=== PATIENT | female | born 1995 | race African-American/Black ===

== ENCOUNTER 2020-01-20 11:12 | Emergency (ER) | payer OTHER, SELFPAY ==
--- NOTE | ~2020-01-20 | CT_ITS ---
EXAMINATION: CT abdomen pelvis w con DATE: 01/20/2020 12:54 INDICATION: Right lower quadrant abdominal pain. TECHNIQUE: Computed tomography (CT) of the abdomen and pelvis was performed with 100 mL Omnipaque 350 intravenous contrast. Automated exposure control and iterative reconstruction technique were employe d. The dose-length product was 218.60 mGy-cm. COMPARISON: None. FINDINGS: The visualized portions of the lung bases demonstrate a nodule with central calcification i n left lower lobe, consistent with old granulomatous disease. No pleural effusion. The heart size is normal. No pericardial effusion. The liver, gallbladder, spleen, pancreas, and adrenal glands are nor mal. There are striated contrast nephrograms bilaterally. There are no dilated loops of bowel. The ap pendix is normal. There are no pathologically enlarged lymph nodes. There is trace pelvic ascites, li vitaly physiologic. Thoracolumbar levocurvature is noted. IMPRESSION: 1. Bilateral striated contrast nephrograms, consistent with pyelonephritis. Reviewed, dictated and finalized at location A.
[2020-01-20 11:22] VITALS: BP 132/81; PULSE 88; RESP 16; TEMP 36.6; O2SAT 100
[2020-01-20 11:56] LABS: Basophils Percent Auto 0.5 % (0.2-1.2); Eosinophils Percent Auto 0.1 % (0-4.4); Hematocrit 45.4 % (37.0-47.0); Hemoglobin 14.5 g/dL (12.0-15.0); Immature Granulocyte Absolute 0.03 K/mm3 (0.00-0.031); Immature Granulocyte Percent A 0.3 % (0-0.5); Lymphocytes Absolute Auto 1.95 K/mm3 (0.9-3.2); Lymphocytes Percent Auto 22.5 % (18.3-44.2); Mean Corpuscular HGB Conc 31.9 g/dl (32-36); Mean Corpuscular Hemoglobin 27.2 pg (26-34); Mean Corpuscular Volume 85.2 fl (80-100); Mean Platelet Volume 9.7 fl (7.4-10.4); Monocytes Percent Auto 11.5 % (2.6-8.5); Neutrophils Absolute Auto 5.6 K/mm3 (1.3-6.7); Neutrophils Percent Auto 65.1 % (45.5-73.1); Platelet Count Result 276 k/mm3 (150-375); Red Blood Count 5.33 M/mm3 (4.2-5.4); Red Cell Distribution Width 13.2 % (11.5-14.5); White Blood Count 8.7 K/mm3 (4.5-10.0)
[2020-01-20] MEDS: ONDANSETRON INJ 4 MG/2 ML VIAL IV PUSH (12:00)
[2020-01-20] MEDS: SODIUM CHLORIDE 0.9% IV 1,000 ML 999 ML IV CONT (12:00)
[2020-01-20] MEDS: FAMOTIDINE 20 MG/2 ML VIAL IV PUSH (12:00)
[2020-01-20 12:08] LABS: Alanine Aminotransferase 15 U/L (4-35); Albumin Level 4.8 g/dL (3.5-5.1); Alkaline Phosphatase 67 U/L (38-126); Aspartate Amino Transferase 21 U/L (14-36); Bilirubin,Total 0.3 mg/dL (0.2-1.3); Blood Urea Nitrogen 8 mg/dL (7-17); Calcium 9.5 mg/dL (8.4-10.2); Carbon Dioxide 28 mmol/L (22-30); Chloride 103 mmol/L (98-107); Estimated CRCL calculation 94 ml/min; Estimated Glomerular Filt Rate > 60; Glucose 110 mg/dL (65-105); Lipase 74 U/L (23-300); Potassium 4.2 mmol/L (3.4-5.0); Sodium 139 mmol/L (137-145)
[2020-01-20 12:52] LABS: Add Urine Microscopic? YES; Appearance Urine Cloudy (Clear); Bacteria Urine Trace /hpf; Bilirubin Urine Negative (Negative); Blood Urine 2+ (Negative); Color Urine Yellow (Yellow); Glucose Urine UA Negative (Negative); Ketones Urine 1+ mg/dL (Negative); Leukocyte Esterase Ur Negative LEU/UL (Negative); Mucus Urine Moderate /lpf; Nitrate Urine Negative (Negative); Protein Urine 1+ mg/dL (Negative); Specific Grav Ur 1.012 (1.001-1.035); Squamous Epithelial Cell Urine Many /hpf (Few)
--- NOTE | 2020-01-20 13:08 | ED.ABDPAIN ---
HPI - Abdominal Pain General Chief Complaint: Abdominal Pain Stated Complaint: SENT URGENT CARE/ABDOMINAL PAIN Time Seen by Provider: 01/20/20 11:14 Source: patient Mode of arrival: ambulatory Limitations: no limitations History of Present Illness HPI narrative: Patient is a 24-year-old female who presents to emergency department for evaluation of right lower quadrant abdominal pain for the last couple of days noting aching pain patient denies vomiting fever chills or similar occurrence in the past. Patient presents from urgent care in the room in no distress. Patient is not take anything for symptoms Related Data Allergies Allergy/AdvReac Type Severity Reaction Status Date / Time cefaclor [From Ceclor] Allergy Intermediate Swelling Verified 01/20/20 11:21 Review of Systems Review of Systems: All systems reviewed & are unremarkable except as noted in HPI and below PMFSH Social History Social History (Updated 01/20/20 @ 13:09 by Gold Lopez PA-C) Smoking status: Never smoker Gender identity (if verbalized by the patient): Female Exam Narrative: Exam Narrative: GENERAL: Well-appearing, well-nourished, and in no acute distress. HEAD: Normocephalic, atraumatic. EYES: PERRLA and EOMI. ENT: Nares clear, no rhinorrhea or epistaxis. Mucous membranes moist. CHEST: Clear to auscultation. No respiratory distress. No wheezes rales or rhonchi HEART: Regular rate and rhythm. No murmur heard. Normal peripheral pulses. ABDOMEN: Soft, right lower quadrant abdominal tenderness to palpation, nondistended EXTREMITIES: Normal range of motion. No edema. FEMALE GENITOURINARY: Small amount of white discharge in the vaginal vault otherwise unremarkable exam SKIN: Warm, dry, no rash. NEURO: No focal deficits. Alert and oriented x3. Cranial nerves II through XII grossly intact PSYCH: Normal mood and affect. Course Course Emergency Course: Patient hydrated in the emergency department no high risk changes in the blood work felt appropriate for outpatient reevaluation agreeing to follow-up with primary care patient is afebrile nontoxic-appearing no distress Vital Signs Vital signs: Vital Signs Temperature 97.8 F 01/20/20 11:22 Pulse Rate 88 01/20/20 11:22 Respiratory Rate 16 01/20/20 11:22 Blood Pressure 132/81 01/20/20 11:22 Pulse Oximetry 100 01/20/20 11:22 Temperature 97.8 F 01/20/20 11:22 Pulse Rate 88 01/20/20 11:22 Respiratory Rate 16 01/20/20 11:22 Blood Pressure 132/81 01/20/20 11:22 Pulse Oximetry 100 01/20/20 11:22 MDM - Abdominal Pain MDM Narrative Medical decision making narrative: Patient in the room at this time resting comfortably aware of case findings treatment plan and diagnosis agreeing to follow-up as directed or to return if symptoms worsen or concerns. Patient notes she will follow with her primary care doctor. Patient given reasons to return. Patient has no concern for STDs but was tested for them to have a more thorough evaluation. Patient will wait for results from STD testing. Patient will be treated for urinary tract infection. Patient has been given strict reasons to return Lab Data Result diagrams: 01/20/20 11:50 01/20/20 11:51 Labs: Lab Results 01/20/20 01/20/20 01/20/20 Range/Units 11:50 11:51 12:16 WBC 8.7 (4.5-10.0) K/mm3 RBC 5.33 (4.2-5.4) M/mm3 Hgb 14.5 (12.0-15.0) g/dL Hct 45.4 (37.0-47.0) % MCV 85.2 (80-100) fl MCH 27.2 (26-34) pg MCHC 31.9 L (32-36) g/dl RDW 13.2 (11.5-14.5) % Plt Count 276 (150-375) k/mm3 MPV 9.7 (7.4-10.4) fl Immature Gran % (Auto) 0.3 (0-0.5) % Neut % (Auto) 65.1 (45.5-73.1) % Lymph % (Auto) 22.5 (18.3-44.2) % [place] % (Auto) 11.5 H (2.6-8.5) % Eos % (Auto) 0.1 (0-4.4) % Baso % (Auto) 0.5 (0.2-1.2) % Lymph # (Auto) 1.95 (0.9-3.2) K/mm3 [place] # (Auto) 1.0 H (0.1-0.6) K/mm3 Eos # (Auto) 0.0 (0-0.3) K/m
--- NOTE | 2020-01-20 13:31 | PC.NURSE ---
Pelvic exam set up at bedside.
== END 2020-01-20 15:23 | disposition home or self-care (01) ==
PROVIDERS: Emergency Medicine Emergency Medical Services; Emergency Provider Emergency Medicine
DX: N39.0 Urinary tract infection, site not specified (principal)
CPT/HCPCS: 36415; 74177; 80053; 81001; 81025; 83690; 85025; 87070; 87491; 87591; 87808; 96361; 96374; 96375; 99284; J2405; J7030; Q9967